=== PATIENT | male | born 1990 | race Caucasian/White ===

== ENCOUNTER 2018-05-18 20:41 | Emergency (ER) | payer MEDICAID ==
[2018-05-18] MEDS: KETOROLAC 60 MG INJ IM (22:56)
[2018-05-19] MEDS: CEPHALEXIN 500 MG CAP PO (00:47)
[2018-05-19] MEDS: TRIMETHOPRIM/SULFAMETHOX (DS) TAB PO (00:47)
== END 2018-05-19 00:52 | disposition home or self-care (01) ==
LOC: FTE 05-19 00:52
DX: L03.116 Cellulitis of left lower limb (principal); B35.3 Tinea pedis; F17.210 Nicotine dependence, cigarettes, uncomplicated; J45.909 Unspecified asthma, uncomplicated
CPT/HCPCS: 93971; 96372; 99285-25

== ENCOUNTER 2019-05-02 19:44 | Emergency (ER) | payer MEDICAID ==
[2019-05-02] MEDS: ALBUTEROL 0.083% (NEB) 2.5 MG/3 ML AMP HHN (20:47)
[2019-05-02] MEDS: predniSONE 20 MG TAB PO (20:59)
== END 2019-05-02 21:27 | disposition home or self-care (01) ==
LOC: FTE 19:44
DX: R07.89 Other chest pain (principal); J45.901 Unspecified asthma with (acute) exacerbation; F17.210 Nicotine dependence, cigarettes, uncomplicated
CPT/HCPCS: 71045; 94664; 99283-25